=== PATIENT | male | born 1965 ===

== ENCOUNTER 2019-04-14 16:19 | Emergency (ER) | payer SELFPAY ==
[~2019-04-14] VITALS: Ht 180.3 cm; Wt 90.0 kg
[2019-04-14 16:24] VITALS: BP 120/78
== END 2019-04-14 17:13 | disposition left against medical advice (07) ==
LOC: ER 16:21
DX: F60.0 Paranoid personality disorder (principal); F41.9 Anxiety disorder, unspecified; R20.0 Anesthesia of skin; R60.0 Localized edema
CPT/HCPCS: 99281

== ENCOUNTER 2019-04-14 22:27 | Emergency (ER) | payer SELFPAY ==
[~2019-04-14] VITALS: Ht 180.3 cm; Wt 70.0 kg
== END 2019-04-15 00:18 | disposition left against medical advice (07) ==
LOC: ER 22:28
DX: S80.12XA Contusion of left lower leg, initial encounter (principal); F29 Unspecified psychosis not due to a substance or known physiological condition; F32.9 Major depressive disorder, single episode, unspecified; Z60.2 Problems related to living alone; Z59.0 Homelessness; X58.XXXA Exposure to other specified factors, initial encounter; Y93.89 Activity, other specified; Y92.89 Other specified places as the place of occurrence of the external cause; Y99.8 Other external cause status
CPT/HCPCS: 99281

== ENCOUNTER 2019-04-15 17:23 | Emergency (ER) | payer SELFPAY ==
[~2019-04-15] VITALS: Ht 180.3 cm; Wt 90.9 kg
[2019-04-15 17:26] VITALS: BP 136/94
--- NOTE | 2019-04-15 18:39 | NUR ---
KATINA LAMBERT ENGAGED WITH PT WHO IS REFUSING TO PROVIDE URINE REQUESTED AFTER ED PROCESS AND TX OPTIONS EXPLAINED. PT INDICATES HE ONLY WANT TO TALK ABOUT HIS DEPRESSION. [facility] AND [facility] COMMUNICATED. PT UNWILLING TO PROVIDE MEDICAL HX.
== END 2019-04-15 18:48 | disposition left against medical advice (07) ==
LOC: ER 17:24
DX: F22 Delusional disorders (principal); F32.9 Major depressive disorder, single episode, unspecified; R22.33 Localized swelling, mass and lump, upper limb, bilateral; R22.43 Localized swelling, mass and lump, lower limb, bilateral; Z60.2 Problems related to living alone; Z59.0 Homelessness
CPT/HCPCS: 99284